=== PATIENT | female | born 1960 | race Caucasian/White ===

== ENCOUNTER 2024-04-01 13:58 | Outpatient (AMB) | payer MEDICARE, SELFPAY ==
--- NOTE | 2024-04-01 14:01 | MHC.OFFVIS ---
Vital Signs 04/01/24 14:02 Height 5 ft 2 in Weight 198 lb BMI 36.2 BP 114/73 Blood Pressure Location Rt brachial Position Sitting Pulse 90 Pulse Source Pulse Oximeter Pulse Oximetry (%) 95 Oxygen Delivery Method Room Air Intake Visit Reasons: Chronic pain syndrome Allergies gabapentin Allergy (Mild, Verified 04/01/24 14:10) Tachycardia Penicillins Allergy (Mild, Verified 04/01/24 14:10) Unknown Fluoroquinolones Allergy (Mild, Uncoded 04/01/24 14:10) Unknown Gabapentin Allergy (Mild, Uncoded 04/01/24 14:10) Swelling Medication List - Last Reconciled 04/01/24 by Snow Hernandez, [employer]ICE [employer]OKER, ORDER MANAGEMENT SPECIALIST azelastine 1 spray intranasal BID colesevelam 1,250 mg PO BID cromolyn 1 spray intranasal TID diazepam 10 mg PO DAILY PRN fexofenadine 60 mg PO BID meloxicam 15 mg PO DAILY metaxalone 800 mg PO QID montelukast 10 mg PO DAILY ondansetron 8 mg PO Q12H oxycodone 5 mg PO BID PRN HPI Comments Details: Earline is a very pleasant 63-year-old female who presents the office today for evaluation management of her chronic diffuse pain She reports suffering with pain from head to toe since the age of 12 after she was kicked in the head by a horse Today she would like to focus on her lower back pain Endorses midline lower back pain without radiation down either lower extremity Pain is rated as a 6/10 Pain is exacerbated by repetitive movement, standing, walking, bending She has undergone 1 set of steroid injections many years ago which exacerbated her pain. She is not interested in repeating any injections with steroids Completed physical therapy 3 months ago but pain persists Denies chiropractor, acupuncture or massage Currently taking muscle relaxers, nonsteroidal anti-inflammatory medications, oxycodone as needed, diazepam of with minimal/temporary improvement of her symptoms. She has also tried heat packs with temporary improvement. She endorses some intermittent paresthesias to both feet, she had EMG many years ago without findings. Denies red flag symptoms including new loss of bowel, bladder or saddle anesthesia. In terms of muscle damage condition is described as aching, spasming, tingling, shooting, tiring, numb Pain is negatively impacting patient's enjoyment of life, general activity, mood, recreational activities, sleep and walking Denies current use of anticoagulants Denies implantable devices, pacemaker defibrillator Denies current use of nicotine, tobacco, alcohol or illicit substances [facility] Medical History (Updated 04/01/24 @ 16:17 by Snow Hernandez APRN, ORDER MANAGEMENT SPECIALIST) Chronic fatigue syndrome Blindness of left eye Generalized anxiety disorder Major depressive disorder Mast cell activation syndrome Review of Systems Const All systems reviewed & are unremarkable except as noted in HPI and below Physical Exam Vital Signs: Last Vital Signs Pulse 90 04/01/24 14:02 BP 114/73 04/01/24 14:02 Pulse Ox 95 04/01/24 14:02 Oxygen Delivery Method Room Air 04/01/24 14:02 BMI result Body Mass Index 36.2 General: awake, alert, oriented. Answers questions appropriately. Fully engaged in examination. Skin: warm, dry, intact HEENT: Normocephalic. Hearing intact. Cardiac: External chest normal in appearance. Respiratory: No cough, audible wheezing or stridor. Abdomen: without gross distension. MS: No obvious swelling or deformities. Able to transition from sit to stand unassisted. Ambulates with bilaterally normal heel strike and toe off Tenderness to palpation midline lumbar vertebrae and lumbar paraspinal muscles Nontender over bilateral PSIS SLR negative bilaterally EDD positive bilaterally Nontender over bilateral GTB Bilateral lower extremity strength 5/5 Facet loading positive bilaterally Valsalva negative Neurological: Oriented to person, place, time and situation. Thought process intact. Ambulates with the use of Rollator walker Psychiatric: Appropriate mood and affect. Good judgment and insight. Assessment & Plan Assessment & Plan (1) Paresthesia of both feet: Code(s): R20.2 - Paresthesia of skin Category: Medical (2) Thoracic back pain: Code(s): M54.6 - Pain in thoracic spine Category: Medical (3) Lumbar spondylosis: Code(s): M47.816 - Spondylosis without myelopathy or radiculopathy, lumbar region Category: Medical (4) Bilateral hip pain: Code(s): M25.551 - Pain in right hip; M25.552 - Pain in left hip Category: Medical (5) Cervicalgia: Code(s): M54.2 - Cervicalgia Category: Medical (6) Chronic pain syndrome: Code(s): G89.4 - Chronic pain syndrome Category: Medical (7) Chronic, continuous use of opioids: Code(s): F11.90 - Opioid use, unspecified, uncomplicated Category: Medical Plan X-rays ordered for evaluation EMG ordered for evaluation Continue with meds as prescribed by PCP Patient has exhausted conservative therapy including PT, home exercise program, prescription medications, [id number] medications, nonsteroidal anti-inflammatory medications all without improvement of her symptoms Will schedule for fluoroscopy guided diagnostic bilateral L3-L4 DR L5 medial branch blocks with local anesthetic. She was given a [employer] pamphlet area. All questions and concerns were answered, patient agrees with plan. Follow up after injections, sooner if needed Orders: Orders XR thoracic spine 3V Today M54.6 - Pain in thoracic spine XR lumbar spine 4V min Today M47.816 - Spondylosis without myelopathy or radiculopathy, lumbar region XR cervical spine w flex/ext Today M54.2 - Cervicalgia XR hips JENNIFER min 3V Today M25.551 - Pain in right hip, M25.552 - Pain in left hip NE electromyogram (EMG) Today R20.2 - Paresthesia of skin Coding Level of Care Code New Pt Level 4 (20842) Complex EM visit Add On G2211 Diagnoses Paresthesia of both feet R20.2 Thoracic back pain M54.6 Lumbar spondylosis M47.816 Bilateral hip pain M25.551; M25.552 Cervicalgia M54.2 Chronic pain syndrome G89.4 Chronic, continuous use of opioids F11.90
[2024-04-01 14:02] VITALS: BP 114/73; PULSE 90; O2SAT 95; BMI 36.2
== END 2024-04-01 14:53 | disposition home or self-care (01) ==
PROVIDERS: PCP Internal Medicine; Visit Provider Registered Nurse Emergency
DX: R20.2 Paresthesia of skin (principal); M54.6 Pain in thoracic spine; M47.816 Spondylosis without myelopathy or radiculopathy, lumbar region; Z79.891 Long term (current) use of opiate analgesic; M25.551 Pain in right hip; M25.552 Pain in left hip; M54.2 Cervicalgia; G89.4 Chronic pain syndrome
CPT/HCPCS: 99204; G2211

== ENCOUNTER → 2024-04-01 13:58 | Outpatient (BNVA) | payer MEDICARE, OTHER, SELFPAY | PROVIDERS: PCP Internal Medicine; Visit Provider Registered Nurse Emergency | DX: G89.4 Chronic pain syndrome (principal); R20.2 Paresthesia of skin; M54.6 Pain in thoracic spine; M47.816 Spondylosis without myelopathy or radiculopathy, lumbar region; M25.511 Pain in right shoulder; M25.552 Pain in left hip; M25.551 Pain in right hip; M54.2 Cervicalgia; F11.90 Opioid use, unspecified, uncomplicated | CPT/HCPCS: 99202 ==

== ENCOUNTER 2024-07-02 12:28 | Outpatient (REF) | payer MEDICARE, SELFPAY ==
--- NOTE | ~2024-07-02 | XR_ITS ---
EXAMINATION: XR THORACIC SPINE CLINICAL INFORMATION: M54.6 - Pain in thoracic spine COMPARISON: None available. TECHNIQUE: 3 views of the thoracic spine were obtained. FINDINGS: There is a mild left convex thoracolumbar scoliosis. There is a normal kyphosis. No subluxations. No fracture, compression deformity, or suspicious bone lesion. Moderate degenerative disc changes most significant in the mid thoracic region. Normal facet alignment. Mild degenerative facet changes. Imaged soft tissues appear normal allowing for technique. XR/XR thoracic spine 3V IMPRESSION: 1. No acute findings thoracic spine. 2. Mild to moderate degenerative spondylosis with mild levoconvex scoliosis. Electronically signed by: Ivan Mckenzie MD 07/06/2024 11:38 AM [facility]
--- NOTE | ~2024-07-02 | XR_ITS ---
EXAMINATION: XR CERVICAL SPINE CLINICAL INFORMATION: M54.2 - Cervicalgia COMPARISON: None available. TECHNIQUE: 8 views of the cervical spine, inclusive of bilateral oblique and flexion and extension views, were obtained. FINDINGS: There is a mild levoconvex scoliosis. There is mild straightening of the normal lordosis. No fracture, compression deformity, or suspicious bone lesion. There is a 3 mm degenerative appearing anterolisthesis of C4 on C5. Alignment is otherwise anatomic. Craniocervical junction is intact. C1-2 articulation is intact and aligned, with degenerative changes. Normal facet alignment. Multilevel bilateral hypertrophic facet arthropathy most significant C3-C6. Disc degeneration is present most significant spanning C5-6 and C6-7 with associated disc osteophytic spurs. No evidence of instability on flexion and extension views. Oblique views demonstrate moderate bony foraminal stenosis C3-4 and C4-5 on the right, and moderate to severe C3-4 and C4-5 on the left. There is moderate narrowing of the left at C2-3, C4-5, and C5-6. No prevertebral soft tissue abnormality. Lung apices appear clear. XR/XR cervical spine w flex/ext IMPRESSION: 1. Mild levoconvex scoliosis, and at least moderate multilevel spondylosis. Disc degeneration most significant at C5-6 and C6-7. 2. Facet degeneration most significant bilaterally spanning C3-C6. 3. No evidence of instability on flexion and extension views. Electronically signed by: Ivan Mckenzie MD 07/06/2024 11:45 AM [facility]
--- NOTE | ~2024-07-02 | XR_ITS ---
EXAMINATION: XR LUMBOSACRAL SPINE CLINICAL INFORMATION: M47.816 - Spondylosis without myelopathy or radiculopathy, lumbar region COMPARISON: None available. TECHNIQUE: 6 views of the lumbar spine, inclusive of bilateral oblique views, were obtained. FINDINGS: There is a mild levoconvex scoliosis, apex at L3. There is a normal lordosis. There is a 7 mm degenerative appearing anterolisthesis L4 on L5. No additional subluxation. No fracture, compression deformity, or suspicious bone lesion. Degenerative facet changes are present most notable L4-5 and L5-S1. No evidence of pars defects. Moderate disc degeneration present L4-5 and L5-S1. There are bilateral hip arthroplasties incidentally noted. Sacrum appears intact. Mild degenerative arthritis left greater than right SI joints. No discrete soft tissue abnormalities. XR/XR lumbar spine 4V min IMPRESSION: 1. No acute findings lumbar spine. 2. Mild levoconvex scoliosis. 3. Degenerative spondylosis, relatively confined to L4-S1. Electronically signed by: Ivan Mckenzie MD 07/06/2024 11:50 AM [facility]
--- NOTE | ~2024-07-02 | XR_ITS ---
EXAMINATION: XR BILATERAL HIPS WITH AP PELVIS CLINICAL INFORMATION: M25.551 - Pain in right hip COMPARISON: None available. TECHNIQUE: AP and frog-leg lateral views of each hip were obtained. FINDINGS: There have been bilateral total hip arthroplasties. Femoral and acetabular components are bilaterally well seated, in anatomic alignment, without periprosthetic fracture or lucency. No subsidence noted. No suspicious bone lesions. On the left, there are 2 metaphyseal cerclage wires. No soft tissue abnormalities. XR/XR hip JENNIFER min 3V IMPRESSION: Bilateral hip arthroplasties in place without definite complication. Electronically signed by: Ivan Mckenzie MD 07/06/2024 09:25 AM [facility]
--- NOTE | 2024-07-02 13:20 | EMG_ITS ---
Chief complaint: History of Lyme and chronic back pain. Reason for referral: Evaluate for neuropathy Referred by: Snow Hernandez NP Procedure done: Bilateral lower extremity NCS/EMG Precautions and/or limitations: None The limb temperature was monitored continuously and remained between 32-36 degrees C during the performance of the NCS. Nerve Conduction Studies Anti Sensory Summary Table ?Stim Site NR Onset (ms) Norm Onset (ms) Peak (ms) Norm Peak (ms) O-P Amp (?V) Norm O-P Amp Site1 Site2 Delta-0 (ms) Dist (cm) Nikhil (m/s) Norm Nikhil (m/s) Left Sural Anti Sensory (Lat Mall) Calf NR <4.0 >5.0 Calf Lat Mall 14.0 Right Sural Anti Sensory (Lat Mall) Calf NR <4.0 >5.0 Calf Lat Mall 14.0 Motor Summary Table ?Stim Site NR Onset (ms) Norm Onset (ms) O-P Amp (mV) Norm O-P Amp iAmp (mV) Amp (1st) (%) Site1 Site2 Delta-0 (ms) Dist (cm) Nikhil (m/s) Norm Nikhil (m/s) Right Peroneal Motor (Ext Dig Brev) Ankle ? 5.0 <4.0 3.8 >2.5 5.0 100.0 Ankle Ext Dig Brev 5.0 0.0 B Fib ? 12.0 3.2 4.3 84.2 B Fib Ankle 7.0 29.0 41 >40 Poplt ? 13.4 3.2 4.3 84.2 Poplt B Fib 1.4 5.0 36 >40 Left Tibial Motor (Abd Torres Brev) Ankle ? 4.1 <5 2.5 >2.5 3.0 100.0 Ankle Abd Torres Brev 4.1 0.0 Knee ? 13.8 1.4 1.7 56.0 Knee Ankle 9.7 37.0 38 >40 Right Tibial Motor (Abd Torres Brev) Ankle ? 4.1 <5 3.0 >2.5 3.6 100.0 Ankle Abd Torres Brev 4.1 0.0 Knee ? 13.8 0.8 0.9 26.7 Knee Ankle 9.7 36.0 37 >40 EMG ?Side Muscle Nerve Root Ins Act Fibs Psw Amp Dur Poly Recrt Int Pat Comment Right AbdHallucis MedPlantar S1-2 Incr 1+ 1+ Nml Nml 0 Nml Complete Right AntTibialis Dp Br Peron L4-5 Nml Nml Nml Nml Nml 0 Nml Complete Right PostTibialis Tibial L5, S1 Nml Nml Nml Nml Nml 0 Nml Complete Right MedGastroc Tibial S1-2 Nml Nml Nml Nml Nml 0 Nml Complete Right VastusMed Femoral L2-4 Nml Nml Nml Nml Nml 0 Nml Complete Left AbdHallucis MedPlantar S1-2 Nml Nml Nml Nml Nml 0 Nml Complete Left AntTibialis Dp Br Peron L4-5 Nml Nml Nml Nml Nml 0 Nml Complete Left PostTibialis Tibial L5, S1 Nml Nml Nml Nml Nml 0 Nml Complete Left MedGastroc Tibial S1-2 Nml Nml Nml Nml Nml 0 Nml Complete Left VastusMed Femoral L2-4 Nml Nml Nml Nml Nml 0 Nml Complete Paraspinal EMG ?Side Muscle Nerve Root Ins Act Fibs Psw Comment Right Lumbar Upper Rami Nml Nml Nml Right Lumbar Mid Rami Nml Nml Nml Right Lumbar Lower Rami Nml Nml Nml Left Lumbar Upper Rami Nml Nml Nml Left Lumbar Mid Rami Nml Nml Nml Left Lumbar Lower Rami Nml Nml Nml FINDINGS: Right peroneal nerve showed prolonged distal latency, normal amplitude and normal conduction velocity. Bilateral tibial nerves showed normal distal latency, small amplitudes and slow conduction velocity. Bilateral sural nerves showed absent response. All other nerves tested were within normal. Concentric needle EMG was performed in selected muscles of the bilateral lower extremity and lumbar paraspinals. Study did not reveal signs of electric abnormalities as shown in the table above. Right AH showed increased insertional activity, PSWs and fibrillations. IMPRESSION: 1. This is an abnormal study. 2. 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 3. There is no electrodiagnostic evidence for lumbosacral plexopathy or lumbar radiculopathy. Thank you for your kind referral. Lyndsay Nguyen MD, CARLOS Board Certified, [place] Board [employer] Physical [employer] and Rehabilitation (ABPMR) Board Certified, [place] Board of Electrodiagnostic Medicine (ABEM) CODIN [id number] x 2 [facility]
== END 2024-07-02 12:29 | disposition home or self-care (01) ==
LOC: HO.NEURO 12:28
PROVIDERS: PCP Internal Medicine; Visit Provider Registered Nurse Emergency
DX: M47.816 Spondylosis without myelopathy or radiculopathy, lumbar region (principal); M54.2 Cervicalgia; M25.551 Pain in right hip; M25.552 Pain in left hip; M54.6 Pain in thoracic spine; R20.2 Paresthesia of skin
CPT/HCPCS: 72052; 72072; 72110; 73522; 95886; 95909

== ENCOUNTER → 2024-07-02 12:34 | Outpatient (BNV) | payer MEDICARE, SELFPAY | PROVIDERS: PCP Internal Medicine; Visit Provider Radiology Diagnostic Radiology | DX: M25.551 Pain in right hip (principal); M47.816 Spondylosis without myelopathy or radiculopathy, lumbar region; M54.6 Pain in thoracic spine; M54.2 Cervicalgia | CPT/HCPCS: 72052; 72072; 72110; 73522 ==

== ENCOUNTER → 2024-07-02 13:20 | Outpatient (BNV) | payer MEDICARE, SELFPAY | PROVIDERS: PCP Internal Medicine; Visit Provider Physical Medicine & Rehabilitation | DX: G57.93 Unspecified mononeuropathy of bilateral lower limbs (principal) | CPT/HCPCS: 95886; 95909 ==

== ENCOUNTER 2024-07-27 06:31 | Outpatient (REF) | payer MEDICARE, SELFPAY ==
--- NOTE | ~2024-07-27 | FL_ITS ---
EXAMINATION: XR FLUOROSCOPY WITH IMAGES CLINICAL INFORMATION: Pain management procedure lumbar spine. COMPARISON: 07/02/2019 lumbar radiographs. TECHNIQUE: Fluoroscopy provided to: Dr. Dominguez Fluoroscopy time: 0.6 minutes DAP: 0.192 mGycm2 Images: 11 FINDINGS: Fluoroscopic guidance provided. Refer to the full procedural report for detail. FL/FL guidance in treatment room IMPRESSION: Fluoroscopic guidance. Electronically signed by: Ivan Mckenzie MD 07/28/2024 08:46 AM EDT
--- OUTSIDE RECORDS SUMMARY | 2024-07-27 06:34 | XMS_ITS | Data Portability ---
Author Organization [facility], [facility]- Address [address] [place] [address] Care Team Providers Care Home Appraiser Name Role Phone [facility] Primary Care Prov ider Assessment No assessment recorded. Plan of Treatment Reminders Order Date Submit Date Provider Last Modified By Organization Details Last Modified Time Details Appointments None recorded. Lab None recorded. Referral None recorded. Procedures None recorded. Surgeries None recorded. Imaging None recorded. Medication Orders azelastine 137 mcg (0.1 %) nasal spray [address] [facility], [address] [place] [address], [address], 4 10:54:04 Patient TargetsNo targets recorded. Patient InstructionsNo instructions recorded. Reason for Referral None Reported. Results Created Date Observation Date Name Description Value Unit Range Abnormal Flag Note LastModifiedBy Organization Detail LastModifiedTime 12/05/[address], head + brain , w/o contr ast No observ ation record ed. [email or web address] Not Available 2023 11:10:48 Result Notes None recorded. Problems Name Problem SNOMED Code Status Onset Date Resolution Date Notes Provider Name and Address Organization Details Recorded Time Hypertroph y of nasal turbinates 90228870 Active 2023 Janes Marino MD [address] [facility], [place], [address], [facility] 4 10:53:57 Perennial allergic rhinitis 074758002 Active 2023 Janes Marino MD [address], [place], [address], [facility] 4 07:10:26 Chronic ethmoidal sinusitis 36028250 Active 2023 Janes Marino MD [address], [place], [address], [facility] 4 07:11:00 Chronic maxillary sinusitis 46298376 Active 2023 Janes Marino MD [address], [place], [address], [facility] 4 07:11:00 Problem Notes None recorded. Procedures Surgical History None recorded. Imaging Results Imaging Date Name Status LastModified by Organiz ation Details LastModified Time 12/05/2023 CT, head + brain, w/o contrast completed [email or web address] Information not available 12/05/2023 11:10:48 Procedure Notes None recorded. Medical Equipment None Reported. Allergies Allergen ID Allergen Name Allergen Category Reaction Reaction Severity Criticality Documentation Date Start Date Code Code System Note Provider Name and Address Organization Details Recorded Time 36517 Product containin g penicilli n (product) medicatio n Not available Not available Not available 12/05/2023 13455 8001 SNOMED Not Available Not Available Not Available 06410 amoxicill in medicatio n Not available Not available Not available 12/05/2023 723 RxNorm Not Available Not Available Not Available 89430 gabapenti n medicatio n Not available Not available Not available 12/05/2023 80301 RxNorm Not Available Not Available Not Available 88039 Zyrtec medicatio n Not available Not available Not available 12/05/2023 64657 RxNorm Not Available Not Available Not Available Medications Name Sig Start Date Stop Date Status Note LastModified by Organization Details LastModified Time cetirizine 10 mg tablet active Not Available Not Available Not Available meloxicam 15 mg tablet active Not Available Not Available No t Available cephalexin 500 mg capsule active Not Available Not Available Not Available Banophen 25 mg capsule active Not Available Not Available N ot Available azelastine 137 mcg (0.1 %) nasal spray Bath 2 sprays twice a day by intranasal route for 30 days. 2023 active Not Available Not Available Not Avai lable oxycodone 5 mg tablet active Not Available Not Available No t Available metaxalone 800 mg tablet active Not Available Not Available Not Available Vitals Date Recorded Body height Body mass index (BMI) Body weight Provider Name and Address Organization Details Last Updated DateTime 12/05/2023 157.48 cm 34.8 kg/m2 06151.55 g Marisela Guy [place] - [facility] 12/05/2023 11:03:23 Social History None recorded. Functional Status None recorded. Mental Status None recorded. Family History Nothing Reported. Medical History Condition Response Acid reflux (GERD) Y Liver Disease/Jaundice N Emphysema N Glaucoma N Depression N HIV/Sexually Transmitted Disease N Hearing Loss N Arthritis N Cancer N Stroke N Speech Delay N Kidney Disease N Allergies/Hayfever N Heart Conditions N Migraines N Thyroid Problems N Anemia N Heart Attack (OR) N N Diabetes N Bleeding Disorder N Asthma Y Sleep Disorder N Hypertension N Gynecological HistoryNo gynecological history recorded. Obstetrics History GPAL:G 0 P 0 0 0 0 Past Encounters Encounter ID Performer Location Encounter Start Date Encounter Closed Date Diagnosis/Indication Diagnosis SNOMED-CT Code Diagnosis ICD10 Code Diagnosis Note [id number] Janes Marino MD [place] [address] [address] [address] 12/05/2023 10:15:47 12/05/2023 10:57:51 Hypertrophy of nasal turbinates 93254993 J34.3 Perennial allergic rhinitis 731104245 J30.89 Chronic ma xillary sinusitis 59738442 J32.0 Chronic et hmoidal sinusitis 15257548 J32.2 History of multiple allergies 936239883 Z88.1 Health Concerns Section Related Observation LastModified by Organization Detai ls LastModified Time None Recorded Concern Status LastModified by Organization Details LastModified Time None Recorded Advance Directives Directive None Recorded Payers Encounter Date Sequence Insurance Name Policy Number Policy Perry Covered Member ID Perry Member ID Guarantor Name 12/05/2023 1 [facility] [employer] - TO[employer] (MEDICAID HMO) [id number] Earlinemary Whiteside [id number] Stevo OBGyn Episode No OBEpisode recorded.
== END 2024-07-27 06:32 | disposition home or self-care (01) ==
LOC: CF 06:31
PROVIDERS: Visit Provider Anesthesiology
DX: M47.816 Spondylosis without myelopathy or radiculopathy, lumbar region (principal)
CPT/HCPCS: 64493; 64494; J2003; J2795; Q9967

== ENCOUNTER 2024-07-27 13:38 | Outpatient (AMB) | payer MEDICARE, OTHER, SELFPAY ==
[2024-07-27 13:48] VITALS: BP 96/70; PULSE 95; RESP 16; O2SAT 96
--- NOTE | 2024-07-27 13:48 | MHC.OFFVIS ---
Vital Signs 07/27/24 13:48 BP 96/70 Blood Pressure Location Lt brachial Position Sitting Respiration 16 Pulse 95 Pulse Source Pulse Oximeter Pulse Oximetry (%) 96 Oxygen Delivery Method Room Air Intake Visit Reasons: BILATERAL DIAGNOSTIC L3, L4, DRL5 MBB Revenue Enforcement Collection Agent Required: No Allergies gabapentin Allergy (Mild, Verified 07/27/24 13:49) Tachycardia Penicillins Allergy (Mild, Verified 07/27/24 13:49) Unknown Fluoroquinolones Allergy (Mild, Uncoded 04/01/24 14:10) Unknown Gabapentin Allergy (Mild, Uncoded 04/01/24 14:10) Swelling [facility] Medical History (Updated 04/01/24 @ 16:17 by Snow Hernandez, SUPERVISOR S[employer]POSIT, RECORDING CLERK) Chronic fatigue syndrome Blindness of left eye Generalized anxiety disorder Major depressive disorder Mast cell activation syndrome Physical Exam Vital Signs: Last Vital Signs Pulse 95 07/27/24 13:48 Resp 16 07/27/24 13:48 BP 96/70 07/27/24 13:48 Pulse Ox 96 07/27/24 13:48 Oxygen Delivery Method Room Air 07/27/24 13:48 Assessment & Plan Assessment & Plan (1) Lumbar spondylosis: Code(s): M47.816 - Spondylosis without myelopathy or radiculopathy, lumbar region Category: Medical Plan Diagnostic bilateral medial branch block L3, L4, dorsal ramus L5. Informed consent was thoroughly explained to the patient before the procedure.? The patient came to the operating room.? She was positioned prone on operating table with a pillow under her abdomen.? Time-out was performed delineating correct site and side of the procedure, nature of the injection, name and date of of the patient. The lower back and upper buttocks of the patient was prepped with ChloraPrep and draped with sterile utility towels.? C-arm was brought over the operating field and the point of interest were delineated as confluence of the superior articular process of L4 vertebra and L5 vertebra bilaterally with corresponding transverse process bilaterally., as well as confluence of the superior articular process of S1 on the bilaterally with sacral ala bilaterally. The point of interest projection to the skin was injected with small amount of mixture of lidocaine 2% and ropivacaine 0.5%. After that 22 gauge 3-1/2 inch needle was driven to point of interest in tunnel vision fashion. When needle gently contacted the bone injection of the contrast was performed delineating no intravascular and no intrathecal spread of the contrast. After that injection of the small amount of ropivacaine 0.5% less than 1 cc into each target site was performed. Upon completion of the injections the needle was removed sterile Band-Aids were applied. The patient tolerated procedure well. She was given a pain diary to complete after the procedure. Orders: Orders FL guidance in treatment room Today M47.816 - Spondylosis without myelopathy or radiculopathy, lumbar region Coding Level of Care Code Procedure Only Diagnoses Lumbar spondylosis M47.816
== END 2024-07-27 14:26 | disposition home or self-care (01) ==
LOC: HO.PMCPRC 13:38
PROVIDERS: PCP Internal Medicine; Visit Provider Anesthesiology
DX: M47.816 Spondylosis without myelopathy or radiculopathy, lumbar region (principal)
CPT/HCPCS: 64493; 64494

== ENCOUNTER 2024-07-30 12:56 | Outpatient (AMB) | payer MEDICARE, OTHER, SELFPAY ==
--- NOTE | 2024-07-30 13:01 | A.OFFVIS_ITS ---
Vital Signs 07/30/24 13:04 Height 5 ft 2 in BP 119/74 Blood Pressure Location Rt brachial Position Sitting Pulse 102 H Pulse Source Pulse Oximeter Pulse Oximetry (%) 99 Oxygen Delivery Method Room Air Intake Visit Reasons: BILATERAL DIAGNOSTIC L3, L4, DRL5 MBB Allergies gabapentin Allergy (Mild, Verified 07/30/24 13:05) Tachycardia Penicillins Allergy (Mild, Verified 07/30/24 13:05) Unknown Fluoroquinolones Allergy (Mild, Uncoded 04/01/24 14:10) Unknown Gabapentin Allergy (Mild, Uncoded 04/01/24 14:10) Swelling HPI Comments Details: The patient is a 63-year-old female presenting for follow up, 3 days s/p bilateral diagnostic L3 L4 DR L4 MBBS. 100% pain relief for 4 hours after then injection, 90% relief for 10 hours after injections. Pain gradually returned to a severe 7/10 due to overactivity following the injection. Stretching, bending, and walking, particularly with her dog, were activities identified as exacerbating the pain. The patient also reported differentiated hip pain and IT band pain flare-ups following longer periods of physical activity, with some relief achieved from topical magnesium oil and oral oxycodone. - Onset and Timing: Complete relief for 4 hours, gradual return over 10 hours post-injection. - Quality and Character: Sharp increase to 7/10 in severity. - Primary Location: Lumbar region, associated hip and IT band discomfort. - Radiation: Pain localized but distinct in back, hips, and IT band. - Exacerbating Factors: Physical activity post-injection, particularly walking, bending, and stretching. - Relieving Factors: Analgesic injection, magnesium oil, oxycodone. - Impact on Activities: Affects daily activities and walking, limits lifestyle. - Affect: The patient finds outdoor activity enjoyable and meaningful - Analgesia: Experiencing 7/10 pain after initial relief; goal is extended pain relief. - Adverse Effects: None from current medications reported. - Activities of Daily Living: Currently limited, patient desires to increase activity levels. - Aberrant Drug Related Behaviors: None reported or observed. [facility] Medical History (Updated 04/01/24 @ 16:17 by Snow Hernandez, WEB DEVELOPMENT INSTRUCTOR, TRANSPORTATION CONSULTANT) Chronic fatigue syndrome Blindness of left eye Generalized anxiety disorder Major depressive disorder Mast cell activation syndrome Review of Systems Const All systems reviewed & are unremarkable except as noted in HPI and below Physical Exam Vital Signs: Last Vital Signs Pulse 102 H 03/14/25 13:04 BP 119/74 07/30/24 13:04 Pulse Ox 99 07/30/24 13:04 Oxygen Delivery Method Room Air 07/30/24 13:04 General: awake, alert, oriented. Answers questions appropriately. Fully engaged in examination. Skin: warm, dry, intact HEENT: Normocephalic. Hearing intact. Cardiac: External chest normal in appearance. Respiratory: No cough, audible wheezing or stridor. Abdomen: without gross distension. MS: No obvious swelling or deformities. Able to transition from sit to stand unassisted. Ambulates with bilaterally normal heel strike and toe off Neurological: Oriented to person, place, time and situation. Thought process intact. Ambulates with the use of Rollator walker Psychiatric: Appropriate mood and affect. Good judgment and insight. Assessment & Plan Assessment & Plan (1) Paresthesia of both feet: Code(s): R20.2 - Paresthesia of skin Category: Medical (2) Thoracic back pain: Code(s): M54.6 - Pain in thoracic spine Category: Medical (3) Lumbar spondylosis: Code(s): M47.816 - Spondylosis without myelopathy or radiculopathy, lumbar region Category: Medical (4) Bilateral hip pain: Code(s): M25.551 - Pain in right hip; M25.552 - Pain in left hip Category: Medical (5) Cervicalgia: Code(s): M54.2 - Cervicalgia Category: Medical (6) Chronic pain syndrome: Code(s): G89.4 - Chronic pain syndrome Category: Medical (7) Chronic, continuous use of opioids: Code(s): F11.90 - Opioid use, unspecified, uncomplicated Category: Medical Plan Management of the patient's chronic back pain due to lumbar arthritis involves proceeding with a peripheral nerve stimulation procedure using a Sprint device, starting with the right side. The patient has been counseled regarding procedural details, anticipated outcomes, and necessary post-procedure care, including dressing management and activity restrictions. Alternative plans include possible nerve ablation if symptoms persist, given the avoidance of steroid injections due to suitability. Follow-up care will ensure regular dressing evaluations and patient monitoring. I discussed with the patient the degree of relief obtained following the initial analgesic injection, and the considerations for proceeding with peripheral nerve stimulation as a further step in managing her chronic back pain. We reviewed the procedural process for placing a Sprint device, which involves a small lead wire insert, designed to disrupt nerve signals, potentially providing extended pain relief. We covered the anticipated timeframe for post-procedure relief, emphasizing the benefits of neuromodulation over several weeks, and ensuring a mutual understanding of weekly dressing care. Given the patient's challenge tolerating steroid injections, alternative interventions such as nerve ablation were reviewed as potential future measures. The patient verbalized understanding of the procedure, its benefits, and possible outcomes, including follow-up arrangements. - Follow up with the scheduling office to arrange the procedure dates. - Maintain limited activity post-procedure, specifically avoiding swimming or baths. - Attend regular weekly dressing changes as scheduled. - Report any adverse changes in symptoms or dressing condition immediately. Patient was informed and verbally consented to the use of an ambient scribe for clinic note documentation during this visit. Coding Level of Care Code Est Pt Level 3 (16680) Complex EM visit Add On G2211 Diagnoses Paresthesia of both feet R20.2 Thoracic back pain M54.6 Lumbar spondylosis M47.816 Bilateral hip pain M25.551; M25.552 Cervicalgia M54.2 Chronic pain syndrome G89.4 Chronic, continuous use of opioids F11.90
[2024-07-30 13:04] VITALS: BP 119/74; PULSE 102; O2SAT 99
== END 2024-07-30 13:19 | disposition home or self-care (01) ==
LOC: HO.PMC 12:57
PROVIDERS: PCP Internal Medicine; Visit Provider Registered Nurse Emergency
DX: R20.2 Paresthesia of skin (principal); M54.6 Pain in thoracic spine; M47.816 Spondylosis without myelopathy or radiculopathy, lumbar region; M25.551 Pain in right hip; M25.552 Pain in left hip; M54.2 Cervicalgia; G89.4 Chronic pain syndrome; Z79.891 Long term (current) use of opiate analgesic
CPT/HCPCS: 99213; G2211

== ENCOUNTER → 2024-07-30 12:56 | Outpatient (BNVA) | payer MEDICARE, SELFPAY | PROVIDERS: PCP Internal Medicine; Visit Provider Registered Nurse Emergency | DX: M54.6 Pain in thoracic spine (principal); M47.816 Spondylosis without myelopathy or radiculopathy, lumbar region; M25.551 Pain in right hip; M25.552 Pain in left hip; M54.2 Cervicalgia; R20.2 Paresthesia of skin; G89.4 Chronic pain syndrome; F11.90 Opioid use, unspecified, uncomplicated; Z98.890 Other specified postprocedural states | CPT/HCPCS: 99212 ==

== ENCOUNTER → 2024-10-18 08:15 | Outpatient (REF) | payer MEDICARE, OTHER, SELFPAY ==
--- NOTE | 2024-10-18 08:21 | ECG_ITS ---
Test Reason : Insomnia Blood Pressure : */* mmHG Vent. Rate : 76 BPM Atrial Rate : 76 BPM P-R Int : 152 ms QRS Dur : 88 ms QT Int : 386 ms P-R-T Axes : 53 -47 27 degrees QTcB Int : 434 ms Normal sinus rhythm Possible Left atrial enlargement Left axis deviation Abnormal ECG No previous ECGs available Referred By: Gardenia Mae Electronically Signed By: AMARIS BEGUM
--- OUTSIDE RECORDS SUMMARY | 2024-10-18 08:24 | XMS_ITS | Data Portability ---
Author Organization [facility], [facility]- Address [address] [place] [address] Care Team Providers Care Services Mgr Name Role Phone [facility] Primary Care Prov ider Assessment No assessment recorded. Plan of Treatment Reminders Order Date Submit Date Provider Last Modified By Organization Details Last Modified Time Details Appointments None recorded. Lab None recorded. Referral None recorded. Procedures None recorded. Surgeries None recorded. Imaging None recorded. Medication Orders azelastine 137 mcg (0.1 %) nasal spray 2023 024 [facility], [address] [place] [address], [address], 4 10:54:04 Patient TargetsNo targets recorded. Patient [...] Recorded Time Hypertroph y of nasal turbinates 41444499 Active 2023 Janes Marino MD [address] [facility] [address] [facility], [place], [address], [facility] 4 10:53:57 Perennial allergic rhinitis 760266639 Active 2023 Janes Marino MD [address] [facility] [address], [place], [address], [facility] 4 07:10:26 Chronic ethmoidal sinusitis 77655135 Active 2023 Janes Marino MD [address] [facility] [address], [place], [address], [facility] 4 07:11:00 Chronic maxillary sinusitis 00129800 Active 2023 Janes Marino MD [address] [facility] [address], [place], [address], [facility] 4 07:11:00 Problem Notes None recorded. Medical Equipment None Reported. Allergies Allergen ID Allergen Name Allergen Category Reaction Reaction Severity Criticality Documentation Date Start Date Code Code System Note Provider Name and Address Organization Details Recorded Time 74017 Product containin g penicilli n (product) medicatio n Not available Not available Not available 12/05/2023 98653 8001 SNOMED Marisela Guy [facility] 4 11:03:35 32773 amoxicill in medicatio n Not available Not available Not available 12/05/2023 723 RxNorm Marisela Guy [facility] 4 11:03:42 40104 gabapenti n medicatio n Not available Not available Not available 12/05/2023 61282 RxNorm Marisela Guy [facility] 4 11:03:50 31520 Zyrtec medicatio n Not available Not available Not available 12/05/2023 76854 RxNorm Marisela Guy [facility] 4 11:03:57 Medications Name Sig Start Date Stop Date [...] azelastine 137 mcg (0.1 %) nasal spray [place] 2 sprays twice a day by intranasal [...] Updated DateTime 12/05/2023 157.48 cm 34.8 kg/m2 14765.55 g Marisela Guy [place] - [facility] 12/05/2023 11:03:23 Social History None recorded. Functional Status None recorded. Mental Status None recorded. Family History Nothing Reported. Medical History Condition Response Allergies/Hayfever N Acid reflux (GERD) Y Heart Conditions N Liver Disease/Jaundice N Emphysema N Migraines N Thyroid Problems N Glaucoma N Depression N HIV/Sexually Transmitted Disease N Anemia N Heart Attack ([place]) N N Diabetes N Bleeding Disorder N Hearing Loss N Arthritis N Cancer N Stroke N Asthma Y Sleep Disorder N Hypertension N Speech Delay N Kidney Disease N Gynecological HistoryNo gynecological history recorded. Obstetrics History GPAL:G 0 P 0 0 0 0 Past Encounters Encounter ID Performer Location Encounter Start Date Encounter Closed Date Diagnosis/Indication Diagnosis SNOMED-CT Code Diagnosis ICD10 Code Diagnosis Note [id number] Janes Marino MD [place] [address] [address] [id number] 12/05/2023 10:15:47 12/05/2023 10:57:51 Hypertrophy of nasal turbinates 44515369 J34.3 Perennial allergic rhinitis 495912840 J30.89 Chronic ma xillary sinusitis 69829540 J32.0 Chronic et hmoidal sinusitis 85415408 J32.2 History of multiple allergies 857476672 Z88.1 Health Concerns Section Related Observation LastModified by Organization Detai ls LastModified Time None Recorded Concern Status LastModified by Organization Details LastModified Time None Recorded Advance Directives Directive None Recorded Payers Encounter Date Sequence Insurance Name Policy Number Policy Perry Covered Member ID Perry Member ID Guarantor Name 12/05/2023 1 [facility] [employer] - TOGETHER (MEDICAID HMO) [id number] Earlinemary Whiteside [id number] 1 Earlinemary Whiteside OBGyn Episode No OBEpisode recorded.
== END ==
LOC: HO.CARD 08:15
PROVIDERS: PCP Internal Medicine; Visit Provider Allergy & Immunology Allergy
DX: G47.09 Other insomnia (principal)
CPT/HCPCS: 93005

== ENCOUNTER → 2024-10-18 08:21 | Outpatient (BNV) | payer MEDICARE, OTHER, SELFPAY | PROVIDERS: PCP Internal Medicine; Visit Provider Internal Medicine | DX: R94.31 Abnormal electrocardiogram [ECG] [EKG] (principal); G47.00 Insomnia, unspecified | CPT/HCPCS: 93010 ==

== ENCOUNTER 2024-10-29 11:09 | Outpatient (AMB) | payer MEDICARE, OTHER, SELFPAY ==
[2024-10-29 11:11] VITALS: BP 117/71; PULSE 88; RESP 16; O2SAT 95; BMI 32.7
--- NOTE | 2024-10-29 11:11 | MHC.OFFVIS ---
Vital Signs 10/29/24 11:11 Height 5 ft 2 in Weight 179 lb BMI 32.7 BP 117/71 Blood Pressure Location Rt brachial Position Sitting Respiration 16 Pulse 88 Pulse Source Pulse Oximeter Pulse Oximetry (%) 95 Oxygen Delivery Method Room Air Intake Visit Reasons: Sprint vs RFA: Procedure Discussion Construction Lineman Required: No Allergies gabapentin Allergy (Mild, Verified 10/29/24 11:16) Tachycardia Penicillins Allergy (Mild, Verified 10/29/24 11:16) Unknown Fluoroquinolones Allergy (Mild, Uncoded 04/01/24 14:10) Unknown Gabapentin Allergy (Mild, Uncoded 04/01/24 14:10) Swelling HPI Comments Details: The patient is a 63-year-old female presenting with chronic back pain. She has experienced persistent pain since an incident in 1993, which caused acute trauma to her back and neck. Her current symptoms include chronic low back pain radiating to the hips and lower legs, with occasional referred pain to the neck. Spinal stenosis has been identified as a contributing factor, enhanced by historic scoliosis existing from a young age, which was previously asymptomatic. Past treatments have included diagnostic medial branch blocks which provided temporary significant relief; however, the pain subsequently returns. Current management involves minimizing reliance on opioids like oxycodone. - Onset and Timing: Chronic since a 1993 incident with intermittent exacerbations. - Quality and Character: Chronic lumbar pain with referred pain to the hips and lower legs. - Location: Lower back radiating into hips, lower legs, and occasionally neck. - Radiation: Radiating pain into hips, lower legs, and neck. - Exacerbating Factors: Unknown specific measures beyond the aggravated initial incident. - Relieving Factors: Injections previously successful for temporary relief. - Interference with Activities: Daily life, including walking a dog, is affected. - Affect: The patient acknowledges frustration regarding current pain management. - Analgesia: Temporary relief from past injections; concern about ongoing usage of oxycodone. - Adverse Effects: Oxycodone usage is not desired long-term. - Activities of Daily Living: Pain affects mobility and general quality of life. - Aberrant Drug Related Behaviors: None reported. [facility] Medical History (Updated 04/01/24 @ 16:17 by Snow Hernandez, SCIENCE CONSULTANT, EMBOSSING UNIT OPERATOR) Chronic fatigue syndrome Blindness of left eye Generalized anxiety disorder Major depressive disorder Mast cell activation syndrome Review of Systems Const Details: - Musculoskeletal: Reports lower back pain radiating to hips and legs. - Neurological: Reports chronic neck pain, history of a vertebral fracture. - General: Denies frequent swimming or bathing due to lifestyle. Physical Exam Vital Signs: Last Vital Signs Pulse 88 10/29/24 11:11 Resp 16 10/29/24 11:11 BP 117/71 10/29/24 11:11 Pulse Ox 95 10/29/24 11:11 Oxygen Delivery Method Room Air 10/29/24 11:11 BMI result Body Mass Index 32.7 General: awake, alert, oriented. Answers questions appropriately. Fully engaged in examination. Skin: warm, dry, intact HEENT: Normocephalic. Hearing intact. Cardiac: External chest normal in appearance. Respiratory: No cough, audible wheezing or stridor. Abdomen: without gross distension. MS: No obvious swelling or deformities. Able to transition from sit to stand unassisted. Ambulates with bilaterally normal heel strike and toe off Neurological: Oriented to person, place, time and situation. Thought process intact. Ambulates with the use of cane. Psychiatric: Appropriate mood and affect. Good judgment and insight. Results Reviewed Results Reviewed: 07/02/24 XR/XR lumbar spine 4V min FINDINGS: There is a mild levoconvex scoliosis, apex at L3. There is a normal lordosis. There is a 7 mm degenerative appearing anterolisthesis L4 on L5. No additional subluxation. No fracture, compression deformity, or suspicious bone lesion. Degenerative facet changes are present most notable L4-5 and L5-S1. No evidence of pars defects. Moderate disc degeneration present L4-5 and L5-S1. There are bilateral hip arthroplasties incidentally noted. Sacrum appears intact. Mild degenerative arthritis left greater than right SI joints. No discrete soft tissue abnormalities. IMPRESSION: 1. No acute findings lumbar spine. 2. Mild levoconvex scoliosis. 3. Degenerative spondylosis, relatively confined to L4-S1. Assessment & Plan Assessment & Plan (1) Paresthesia of both feet: Code(s): R20.2 - Paresthesia of skin Category: Medical (2) Thoracic back pain: Code(s): M54.6 - Pain in thoracic spine Category: Medical (3) Lumbar spondylosis: Code(s): M47.816 - Spondylosis without myelopathy or radiculopathy, lumbar region Category: Medical (4) Bilateral hip pain: Code(s): M25.551 - Pain in right hip; M25.552 - Pain in left hip Category: Medical (5) Cervicalgia: Code(s): M54.2 - Cervicalgia Category: Medical (6) Chronic pain syndrome: Code(s): G89.4 - Chronic pain syndrome Category: Medical (7) Chronic, continuous use of opioids: Code(s): F11.90 - Opioid use, unspecified, uncomplicated Category: Medical Plan The patient will trial the Sprint peripheral nerve stimulator to manage her chronic lumbar pain due to her hesitancy about radiofrequency ablation. A focus on non-invasive management was emphasized, with the stimulator implanted for an eight-week assessment. Should sustained relief occur, progression to a permanent implant may be considered. The patient will also engage in physical therapy to aid in lumbar and cervical support, improving posture and potentially addressing pain symptoms over time. Physical therapist recently been ordered by her primary care provider. I have informed the patient regarding the management of her chronic lumbar pain. The differences between nerve ablation and the Sprint peripheral nerve stimulator were explained in detail, including procedural aspects, anticipated recovery times, and the reversible nature of the stimulator trial. We discussed the potential for approximately nine months of relief with the stimulator, with possible extensions. Physical therapy was proposed for supportive pain management, focusing on posture and muscle strengthening for symptom relief. The patient was advised to plan for a physical therapy trial for several weeks before concluding its utility. We also discussed the cost implications of Platelet-Rich Plasma therapy, which is not covered by insurance. Follow-up and progression discussions were noted and advised in alignment with trial outcomes. Will schedule for fluoroscopy guided bilateral L4 sprint PNS with local anesthetic. Patient was informed and verbally consented to the use of an ambient scribe for clinic note documentation during this visit. Patient Instructions: - Try physical therapy for strengthening your back and neck. - Schedule an appointment to trial the Sprint nerve stimulator. - Keep track of your pain levels and how it affects your daily activities. - Avoid over-relying on oxycodone; limit use as necessary. - Return to the clinic if severe pain persists despite therapy. - Call the office if you have questions or need further scheduling assistance. Coding Level of Care Code Est Pt Level 3 (38383) Complex EM visit Add On G2211 Diagnoses Paresthesia of both feet R20.2 Thoracic back pain M54.6 Lumbar spondylosis M47.816 Bilateral hip pain M25.551; M25.552 Cervicalgia M54.2 Chronic pain syndrome G89.4 Chronic, continuous use of opioids F11.90
--- OUTSIDE RECORDS SUMMARY | 2024-10-29 12:14 | XMS_ITS | Data Portability ---
Author Organization [facility], [facility]- Address [address] [place] [address] Care Team Providers Care Community Development Coordinator Name Role Phone [facility] Primary Care Prov ider Assessment No assessment recorded. Plan of Treatment Reminders Order Date Submit Date Provider Last Modified By Organization Details Last Modified Time Details Appointments None recorded. Lab None recorded. Referral None recorded. Procedures None recorded. Surgeries None recorded. Imaging None recorded. Medication Orders azelastine 137 mcg (0.1 %) nasal spray 2023 024 [facility], [address] [place] [address], [address], 4 10:54:04 Patient TargetsNo targets recorded. Patient [...] Recorded Time Hypertroph y of nasal turbinates 62755079 Active 2023 Janes Marino MD [address] [facility] [address] [facility], [place], [address], [facility] 4 10:53:57 Perennial allergic rhinitis 828077722 Active 2023 Janes Marino MD [address] [facility] [address], [place], [address], [facility] 4 07:10:26 Chronic ethmoidal sinusitis 69164982 Active 2023 Janes Marino MD [address] [facility] [address], [place], [address], [facility] 4 07:11:00 Chronic maxillary sinusitis 74235445 Active 2023 Janes Marino MD [address] [facility] [address], [place], [address], [facility] 4 07:11:00 Problem Notes None recorded. Medical Equipment None Reported. Allergies Allergen ID Allergen Name Allergen Category Reaction Reaction Severity Criticality Documentation Date Start Date Code Code System Note Provider Name and Address Organization Details Recorded Time 94362 Product containin g penicilli n (product) medicatio n Not available Not available Not available 12/05/2023 73798 8001 SNOMED Marisela Guy [facility] 4 11:03:35 39706 amoxicill in medicatio n Not available Not available Not available 12/05/2023 723 RxNorm Marisela Guy [facility] 4 11:03:42 08077 gabapenti n medicatio n Not available Not available Not available 12/05/2023 79207 RxNorm Marisela Guy [facility] 4 11:03:50 95021 Zyrtec medicatio n Not available Not available Not available 12/05/2023 13179 RxNorm Marisela Guy [facility] 4 11:03:57 Medications Name Sig Start Date [...] azelastine 137 mcg (0.1 %) nasal spray [place] 2 sprays twice a day by intranasal [...] Updated DateTime 12/05/2023 157.48 cm 34.8 kg/m2 75301.55 g Marisela Guy [place] - [facility] 12/05/2023 11:03:23 Social History None recorded. Functional Status None recorded. Mental Status None recorded. Family History Nothing Reported. Medical History Condition Response Allergies/Hayfever N Acid reflux (GERD) Y Heart Conditions N Liver Disease/Jaundice N Emphysema N Migraines N Thyroid Problems N Glaucoma N Depression N HIV/Sexually Transmitted Disease N Anemia N Heart Attack ([place]) N N Diabetes N Bleeding Disorder N [...] SNOMED-CT Code Diagnosis ICD10 Code Diagnosis Note [id number] Janes Marino MD [place] [address] [address] [id number] 12/05/2023 10:15:47 12/05/2023 10:57:51 Hypertrophy of nasal turbinates 43151505 J34.3 Perennial allergic rhinitis 255154153 J30.89 Chronic [place] xillary sinusitis 13032636 J32.0 Chronic et hmoidal sinusitis 98127422 J32.2 History of multiple allergies 335755450 Z88.1 Health Concerns Section Related Observation LastModified by Organization Detai ls LastModified Time None Recorded Concern Status LastModified by Organization Details LastModified Time None Recorded Advance Directives Directive None Recorded Payers Insurance Date Sequence Insurance Name Policy Number Policy Perry Covered Member ID Perry Member ID Guarantor Name 12/16/2023 1 [facility] [employer] - TOGETHER (MEDICAID HMO) [id number] Earlinemary Whiteside [id number] 1 Stevo 12/04/2023 1 [facility] PLAN [id number] Earline C Stevo [id number] OBGyn Episode No OBEpisode recorded.
== END 2024-10-29 11:47 | disposition home or self-care (01) ==
LOC: HO.PMC 11:10
PROVIDERS: PCP Internal Medicine; Visit Provider Registered Nurse Emergency
DX: R20.2 Paresthesia of skin (principal); M54.6 Pain in thoracic spine; M47.816 Spondylosis without myelopathy or radiculopathy, lumbar region; Z79.891 Long term (current) use of opiate analgesic; M25.551 Pain in right hip; M25.552 Pain in left hip; M54.2 Cervicalgia; G89.4 Chronic pain syndrome
CPT/HCPCS: 99213; G2211

== ENCOUNTER → 2024-10-29 11:09 | Outpatient (BNVA) | payer MEDICARE, OTHER, SELFPAY | PROVIDERS: PCP Internal Medicine; Visit Provider Registered Nurse Emergency | DX: M54.6 Pain in thoracic spine (principal); M47.816 Spondylosis without myelopathy or radiculopathy, lumbar region; M25.551 Pain in right hip; M25.552 Pain in left hip; M54.2 Cervicalgia; G89.4 Chronic pain syndrome; F11.20 Opioid dependence, uncomplicated | CPT/HCPCS: 99212 ==

== ENCOUNTER 2025-02-15 07:44 | Outpatient (REF) | payer MEDICARE, OTHER, SELFPAY ==
--- NOTE | ~2025-02-15 | FL_ITS ---
EXAMINATION: FL GUIDANCE ONLY HISTORY: M47.816 - Spondylosis without myelopathy or radiculopathy, lumbar region COMPARISON: None available. TECHNIQUE: Fluoroscopy time: 0.1 minutes. Cumulative Dose: 1.88 mGy. DAP: 0.0261 mGym2 Images: 2. FINDINGS: Fluoroscopic spot films of the lumbar spine demonstrate an electrode in place on the right. FL/FL guidance in treatment room IMPRESSION: Fluoroscopy during procedure. Please see procedure report for additional information. Electronically signed by: Leighton Montez MD 02/15/2025 03:21 PM EDT
== END 2025-02-15 07:45 | disposition home or self-care (01) ==
LOC: CF 07:44
PROVIDERS: Visit Provider Anesthesiology
DX: M47.816 Spondylosis without myelopathy or radiculopathy, lumbar region (principal)
CPT/HCPCS: 64555; 64590; C1778; J2003

== ENCOUNTER 2025-02-15 14:44 | Outpatient (AMB) | payer MEDICARE, OTHER, SELFPAY ==
[2025-02-15 14:51] VITALS: BP 101/86; PULSE 85; RESP 18; O2SAT 96; BMI 32.2
--- NOTE | 2025-02-15 14:51 | A.OFFVIS_ITS ---
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: No Allergies gabapentin Allergy (Mild, Verified 10/29/24 11:16) Tachycardia Penicillins Allergy (Mild, Verified 10/29/24 11:16) Unknown Fluoroquinolones Allergy (Mild, Uncoded 04/01/24 14:10) Unknown Gabapentin Allergy (Mild, Uncoded 04/01/24 14:10) Swelling [facility] Medical History (Updated 04/01/24 @ 16:17 by Snow Hernandez APRN, LOOK OUT TOWER FIRE WATCHER) Chronic fatigue syndrome Blindness of left eye Generalized anxiety disorder Major depressive disorder Mast cell activation syndrome Physical Exam Vital Signs: Last Vital Signs Pulse 85 02/15/25 14:51 Resp 18 02/15/25 14:51 BP 101/86 02/15/25 14:51 Pulse Ox 96 02/15/25 14:51 Oxygen Delivery Method Room Air 02/15/25 14:51 BMI result Body Mass Index 32.2 Office Procedures Sprint PNS Device: Sprint PNS Device [id number] Percutaneous Peripheral Neuroelectrode Procedure: 89124 - Percutaneous Peripheral Neuroelectrode Procedure code (CPT) selection complete Office Meds lidocaine HCl 10 mg/mL (1 %) injection solution Performing Provider: Harpreet Dominguez MD Performing Location: [facility] Administered by: Shelley Calderon LPN on 02/15/25 15:02 Dose Route Admin Location Dispensed Lot Number Expiration Date [facility] Extension Edger 5 mL subcut 5 mL Total Dispensed Waste 5 mL 0 % Assessment & Plan Assessment & Plan (1) Lumbar spondylosis: Code(s): M47.816 - Spondylosis without myelopathy or radiculopathy, lumbar region Category: Medical Orders: Orders FL guidance in treatment room Today Snow Hernandez APRN, LOOK OUT TOWER FIRE WATCHER M47.816 - Spondylosis without myelopathy or radiculopathy, lumbar region AMB Sprint PNS Today Harpreet Dominguez MD M47.816 - Spondylosis without myelopathy or radiculopathy, lumbar region Coding Diagnoses Lumbar spondylosis M47.816 CPT Codes Sprint PNS - Sprint PNS Device: Sprint PNS Device ([id number]) Sprint PNS - SPRINT: 49201 - Percutaneous Peripheral Neuroelectrode ([id number]) Implantable Device Implantable Device Implantable Devices Qty Extension Edger Implant Date Expiration Date Analgesic PENS system 1 [facility] [employer] 02/15/25 10/05/26
== END 2025-02-15 15:57 | disposition home or self-care (01) ==
LOC: HO.PMCPRC 14:44
PROVIDERS: PCP Internal Medicine; Visit Provider Anesthesiology
DX: M47.816 Spondylosis without myelopathy or radiculopathy, lumbar region (principal)
CPT/HCPCS: 64555

== ENCOUNTER → 2025-02-18 12:45 | Outpatient (BNVA) | payer MEDICARE, OTHER, SELFPAY | PROVIDERS: PCP Internal Medicine | DX: Z48.01 Encounter for change or removal of surgical wound dressing (principal) ==

== ENCOUNTER 2025-02-23 09:36 | Outpatient (AMB) | payer MEDICARE, OTHER, SELFPAY ==
[2025-02-23 09:46] VITALS: BP 143/81; PULSE 97; RESP 16; O2SAT 92; BMI 31.3
--- NOTE | 2025-02-23 09:46 | MHC.OFFVIS ---
Vital Signs 02/23/25 09:46 Height 5 ft 2 in Weight 171 lb BMI 31.3 BP 143/81 H Blood Pressure Location Rt brachial Position Sitting Respiration 16 Pulse 97 Pulse Source Pulse Oximeter Pulse Oximetry (%) 92 Oxygen Delivery Method Room Air Intake Visit Reasons: Sprint Lead Removed Per Dr. 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 Unfortunately patient lost her PNS lead, she states that she can not observe all the conditions and requirements which is necessary to avoid lead dislodgement. She states that she has to bend forward to corn picker stuff from the floor she has to twist her back while sweeping the floor and she may not be able to maintain hygiene limitations for the procedure. She received diagnostic medial branch block with 100% pain relief for the 1st 4 hours after the procedure and 90% pain relief for the next 5 hours after the procedure. She requests me to schedule her for L3, L4, dorsal ramus L5 medial branch radiofrequency ablation. To perform this procedure I need to schedule her 1st for diagnostic 2. Medial branch block L3-L4 dorsal ramus L5 bilateral. If the results will be comparable to the results of the diagnostic 1. Block with longer pain relief on longer acting local anesthetic we will schedule her for the RFA as above. [facility] Medical History (Updated 04/01/24 @ 16:17 by Snow Hernandez APRN, LUNCHROOM ATTENDANT) Chronic fatigue syndrome Blindness of left eye Generalized anxiety disorder Major depressive disorder Mast cell activation syndrome Review of Systems Const All systems reviewed & are unremarkable except as noted in HPI and below Physical Exam Vital Signs: Last Vital Signs Pulse 97 02/23/25 09:46 Resp 16 02/23/25 09:46 BP 143/81 H 02/23/25 09:46 Pulse Ox 92 02/23/25 09:46 Oxygen Delivery Method Room Air 02/23/25 09:46 BMI result Body Mass Index 31.3 General: awake, alert, oriented. Answers questions appropriately. Fully engaged in examination. Skin: warm, dry, intact HEENT: Normocephalic. Hearing intact. Cardiac: External chest normal in appearance. Respiratory: No cough, audible wheezing or stridor. Abdomen: without gross distension. MS: No obvious swelling or deformities. Able to transition from sit to stand unassisted. Ambulates with bilaterally normal heel strike and toe off Neurological: Oriented to person, place, time and situation. Thought process intact. Ambulates with the use of cane. Psychiatric: Appropriate mood and affect. Good judgment and insight. Results Reviewed Results Reviewed: 07/02/24 XR/XR lumbar spine 4V min FINDINGS: There is a mild levoconvex scoliosis, apex at L3. There is a normal lordosis. There is a 7 mm degenerative appearing anterolisthesis L4 on L5. No additional subluxation. No fracture, compression deformity, or suspicious bone lesion. Degenerative facet changes are present most notable L4-5 and L5-S1. No evidence of pars defects. Moderate disc degeneration present L4-5 and L5-S1. There are bilateral hip arthroplasties incidentally noted. Sacrum appears intact. Mild degenerative arthritis left greater than right SI joints. No discrete soft tissue abnormalities. IMPRESSION: 1. No acute findings lumbar spine. 2. Mild levoconvex scoliosis. 3. Degenerative spondylosis, relatively confined to L4-S1. Assessment & Plan Assessment & Plan (1) Paresthesia of both feet: Code(s): R20.2 - Paresthesia of skin Category: Medical (2) Thoracic back pain: Code(s): M54.6 - Pain in thoracic spine Category: Medical (3) Lumbar spondylosis: Code(s): M47.816 - Spondylosis without myelopathy or radiculopathy, lumbar region Category: Medical (4) Bilateral hip pain: Code(s): M25.551 - Pain in right hip; M25.552 - Pain in left hip Category: Medical (5) Cervicalgia: Code(s): M54.2 - Cervicalgia Category: Medical (6) Chronic pain syndrome: Code(s): G89.4 - Chronic pain syndrome Category: Medical (7) Chronic, continuous use of opioids: Code(s): F11.90 - Opioid use, unspecified, uncomplicated Category: Medical Plan The patient does not want sprint PNS. See discussion as above. I would need to schedule her for diagnostic medial branch block #2 in the order to prepare the patient for radiofrequency ablation of the medial branches. We discussed the procedure in detail, risks and benefits were explained to the patient. Coding Level of Care Code Est Pt Level 3 (61741) Diagnoses Paresthesia of both feet R20.2 Thoracic back pain M54.6 Lumbar spondylosis M47.816 Bilateral hip pain M25.551; M25.552 Cervicalgia M54.2 Chronic pain syndrome G89.4 Chronic, continuous use of opioids F11.90
== END 2025-02-23 10:23 | disposition home or self-care (01) ==
PROVIDERS: PCP Internal Medicine; Visit Provider Anesthesiology
DX: R20.2 Paresthesia of skin (principal); M54.6 Pain in thoracic spine; M47.816 Spondylosis without myelopathy or radiculopathy, lumbar region; M25.551 Pain in right hip; M25.552 Pain in left hip; M54.2 Cervicalgia; G89.4 Chronic pain syndrome; F11.90 Opioid use, unspecified, uncomplicated
CPT/HCPCS: 99024

== ENCOUNTER → 2025-02-23 09:36 | Outpatient (BNVA) | payer MEDICARE, OTHER, SELFPAY | PROVIDERS: PCP Internal Medicine; Visit Provider Anesthesiology | DX: M47.26 Other spondylosis with radiculopathy, lumbar region (principal); M25.551 Pain in right hip; M25.552 Pain in left hip; M54.2 Cervicalgia; G89.4 Chronic pain syndrome; F11.90 Opioid use, unspecified, uncomplicated; Z98.890 Other specified postprocedural states | CPT/HCPCS: 99212 ==

== ENCOUNTER 2025-05-02 14:34 | Outpatient (REF) | payer MEDICARE, OTHER, SELFPAY ==
[2025-05-03 06:58] LABS: Lyme Abs Screen <0.90 index
== END 2025-05-02 14:35 | disposition home or self-care (01) ==
LOC: HO.LAB 14:34
PROVIDERS: PCP Internal Medicine; Visit Provider Psychiatry & Neurology Neurology
DX: G47.33 Obstructive sleep apnea (adult) (pediatric) (principal); G89.4 Chronic pain syndrome; F51.05 Insomnia due to other mental disorder; F99 Mental disorder, not otherwise specified; M79.7 Fibromyalgia; Z01.84 Encounter for antibody response examination
CPT/HCPCS: 36415; 82550; 85652; 86617; 86618; 99202

== ENCOUNTER 2025-05-02 14:34 | Outpatient (AMB) | payer MEDICARE, OTHER, SELFPAY ==
--- NOTE | 2025-05-02 14:58 | A.OFFVIS_ITS ---
Intake Visit Reasons: Insomnia Allergies gabapentin Allergy (Mild, Verified 02/23/25 09:51) Tachycardia Penicillins Allergy (Mild, Verified 02/23/25 09:51) Unknown Fluoroquinolones Allergy (Mild, Uncoded 04/01/24 14:10) Unknown Medication List - Last Reconciled 05/02/25 by Kelechi John MD azelastine 1 spray intranasal BID colesevelam 1,250 mg PO BID cromolyn 1 spray intranasal TID diazepam 10 mg PO DAILY PRN fexofenadine 180 mg PO DAILY fluticasone furoate-vilanterol 100-25 mcg/dose (Breo Ellipta) 1 ea inhalation DAILY fluticasone furoate-vilanterol 50-25 mcg/dose (Breo Ellipta) inhalation meloxicam 15 mg PO DAILY metaxalone 800 mg PO QID montelukast 10 mg PO DAILY ondansetron 8 mg PO Q12H oxycodone 5 mg PO BID PRN tetracycline 250 mg PO Q6H HPI Comments Details: 64 yo RH woman who 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 She is presenting for evaluation of poor sleep. She has a history of chronic insomnia for over 20 years, which she states began after a diagnosis of Lyme disease about 22 years ago. She reports it takes her 1-2 hours to fall asleep despite taking Belsomra 15 mg, diazepam, low-dose naltrexone 4 mg, a gummy, and herbal supplements. She has previously tried Ambien, Lunesta, and trazodone without benefit. The patient has a history of depression and has been treated with antidepressants in the past, but she feels they no longer work. She reports more significant issues with anxiety than depression, noting that her depression has always been situational. She has tried multiple antidepressants, including Cymbalta, Prozac, and Effexor, as well as buspirone for anxiety, without effect. She had an adverse reaction, described as seizures for two hours consistent with serotonin syndrome, when taking Seroquel in combination with another antidepressant. She experiences chronic pain, primarily in her pelvic girdle and hips, which is the site of a previous hip replacement. She also has random muscle spasms throughout her body. Past medication trials for pain include gabapentin (caused tachycardia), Lyrica (caused severe leg swelling), and Savella (caused a ggression). Her current pain regimen includes meloxicam, metaxalone, and oxycodone as needed. Past medical history is notable for H. pylori infection treated with tetracycline, metronidazole, and bismuth. 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 She had a sleep study years ago that showed very mild sleep apnea. Family history is significant for a brother with paranoid schizophrenia, a mother with depression, and a daughter with anxiety. 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 [facility] Medical History (Updated 05/02/25 @ 15:30 by Kelechi John MD) Chronic fatigue syndrome Blindness of left eye Generalized anxiety disorder Major depressive disorder Mast cell activation syndrome Review of Systems Narrative General: No significant change in weight HEENT: No significant issue Cardiovascular: No chest pain or palpitation Respiratory: No significant recent breathing issues Skin: No rashes: Neurological: Generalized body pain Sleep: Severe difficulty sleeping Psychiatric: Chronic anxiety Musculoskeletal: Generalized body pain Genitourinary: No loss of bowel bladder control Physical Exam Neuro Other: Mental Status: She is alert and awake with normal spontaneity of speech fluency comprehension and affect. Cranial Nerves: CN II: Visual killian full to confrontation, visual acuity intact. CN III, IV, : Pupils equal, round, reactive to light and accommodation. Extraocular movements are normal. CN V: Facial sensation is normal. CN VII: Facial movements symmetrical. CN VIII: Hearing intact to bedside conversation is normal. CN IX, X: Palate elevates symmetrically. CN XI: Shoulder shrug and head turn symmetrical. CN XII: Tongue midline without atrophy or fasciculations. Motor: Mild left hemiparesis arm more than leg Gait and Station: Cautious Extrapyramidal: Full facial expressions and blinking. No rigidity. Movements are appropriate with no tremor or abnormality. Speech: Normal; no dysarthria or tremor. Assessment & Plan Assessment & Plan (1) Chronic pain syndrome: Comment: Meds tried for pain and depression: Cymbalta, Prozac, gabapentin, Pregabilin, Savella, Buspar, Effexor Code(s): G89.4 - Chronic pain syndrome Category: Medical (2) Insomnia: Comment: Insomnia meds tried: Ambien, Lunesta, Diazepam, Gummies, THC, CBD, Trazodone, Code(s): G47.00 - Insomnia, unspecified Category: Medical Qualifiers: Insomnia type: due to other mental disorder Qualified Code(s): F51.05 - Insomnia due to other mental disorder; F99 - Mental disorder, not otherwise specified (3) Fibromyalgia: Code(s): M79.7 - Fibromyalgia Category: Medical Plan I discussed with the patient that her constellation of symptoms, including chronic widespread pain and severe insomnia, is highly suggestive of fibromyalgia, which often begins for women in their mid-40s and is linked to chronic stress. I acknowledged her belief that her symptoms stem from Lyme disease and mold exposure but explained that, from a neurological perspective, this is an unlikely sole cause, and this belief has not led to effective treatment over the past two decades. I advised that while a sleep study is not a typical tool for insomnia, it is warranted in her case because untreated sleep apnea can be a cause of fibromyalgia. I explained that if sleep apnea is identified and treated, it could significantly improve her pain and overall quality of life. I outlined the plan to order a home sleep study, which is a convenient take-home test, and some basic lab work. We briefly reviewed her extensive medication history and the many failed trials, acknowledging the difficulty in finding an effective treatment for her. Orders: Orders RT home sleep study Today G47.33 - Obstructive sleep apnea (adult) (pediatric), M79.7 - Fibromyalgia Erythrocyte Sedimentation Rate Today M79.7 - Fibromyalgia Creatine Kinase Total Today M79.7 - Fibromyalgia Lyme IgG/IgM w/reflex to WB Today M79.7 - Fibromyalgia Coding Level of Care Code New Pt Level 4 (96986) Diagnoses Chronic pain syndrome G89.4 Insomnia due to other mental disorder F51.05; F99 Insomnia type: due to other mental disorder Fibromyalgia M79.7
== END 2025-05-02 15:34 | disposition home or self-care (01) ==
LOC: HO.HSM 14:35
PROVIDERS: PCP Internal Medicine; Visit Provider Psychiatry & Neurology Neurology
DX: G89.4 Chronic pain syndrome (principal); F51.05 Insomnia due to other mental disorder; F99 Mental disorder, not otherwise specified; M79.7 Fibromyalgia
CPT/HCPCS: 99204